=== PATIENT | male | born 1970 | race Two or more races ===

== ENCOUNTER 2018-05-14 07:08 | Emergency (ER) | payer MEDICARE, MEDICAID ==
[~2018-05-14] VITALS: Ht 177.8 cm; Wt 88.6 kg
[2018-05-14 07:11] VITALS: BP 142/108
== END 2018-05-14 08:29 | disposition home or self-care (01) ==
LOC: ER 07:09
DX: S60.422A Blister (nonthermal) of right middle finger, initial encounter (principal); R60.9 Edema, unspecified; F17.200 Nicotine dependence, unspecified, uncomplicated; X58.XXXA Exposure to other specified factors, initial encounter; Y93.89 Activity, other specified; Y92.89 Other specified places as the place of occurrence of the external cause; Y99.8 Other external cause status
CPT/HCPCS: 99284